=== PATIENT | female | born 2000 | race Caucasian/White ===

== ENCOUNTER 2021-06-20 00:28 | Inpatient (IN) ==
[2021-06-20 00:40] VITALS: BMI 27.6
[2021-06-20 01:03] LABS: AMNISURE ROM TEST THERE IS A RUPTURE (NO RUPTURE)
[2021-06-20] MEDS ORDERED: D5 LR + PITOCIN 10 UNITS/L 10 UNITS/1,000 ML BAG IV PRN (01:23)
[2021-06-20] MEDS ORDERED: PITOCIN IVP ONE (01:23)
[2021-06-20] MEDS ORDERED: PHENERGAN INJ 25 MG IM PRN ×2 (01:23→11:28)
[2021-06-20] MEDS ORDERED: MORPHINE SULFATE INJ 2 MG INJ IVP PRN (01:23)
[2021-06-20] MEDS ORDERED: STADOL INJ IVP PRN (01:25)
[2021-06-20] MEDS ORDERED: D5 1/2 NS 1,000 mL + PITOCIN 20 UNITS/L IV 20 UNITS/1,000 ML BAG IV ONE (01:28)
[2021-06-20] MEDS ORDERED: BETADINE SOLN ONE (01:28)
[2021-06-20] MEDS ORDERED: PITOCIN ONE (01:28)
[2021-06-20] MEDS ORDERED: FENTANYL VIAL INJ 100 mcg ONE (01:30)
[2021-06-20] MEDS ORDERED: NAROPIN EPIDURAL 0.2% 100 ML ONE (01:30)
[2021-06-20] MEDS ORDERED: LR 1,000 ML IV 1,000 ML IV ONE ×2 (01:30→06:20)
[2021-06-20] MEDS ORDERED: D5 1/2 NS 1,000 ML 1,000 ML IV SCH (02:00)
[2021-06-20] MEDS ORDERED: REGLAN INJ 10 MG VIAL ONE (02:31)
[2021-06-20] MEDS: REGLAN INJ 10 MG VIAL IVP PRN ×2 (02:40→21:52)
--- NOTE | 2021-06-20 06:33 | DR.OB ---
OB Quick Note - Assessment/Plan Assessment/Plan: L&D 06/20/21 at 6:30am Pitocin=18mu/min. S-No complaint. s/p epidural. O-Afebrile,VSS UFE=061 with good LTV, +accel, no decel. CTX=q 1 1/2 to 2 min., strong by palpation CVX=5cm/90%/0/VTX IUPC and FSE placed. A-IUP at 39 3/7 weeks in labor P-Cont. pitocin augmentation Anticipate
[2021-06-20] MEDS ORDERED: MILK OF MAGNESIA PO PRN (12:51)
[2021-06-20] MEDS ORDERED: AMBIEN PO PRN (12:51)
[2021-06-20] MEDS ORDERED: DERMOPLAST PAIN RELIEF SPRAY TOP PRN (12:51)
[2021-06-20] MEDS ORDERED: ADACEL or BOOSTRIX TDaP VACCINE IM ONE (12:51)
[2021-06-20] MEDS: D5 1/2 NS 1,000 ML 1,000 ML with PITOCIN 20 UNITS IV SCH ×4 (13:50→22:42)
[2021-06-20] MEDS: MOTRIN TAB 800 MG PO PRN ×2 (14:00→21:42)
--- NOTE | 2021-06-20 14:19 | DR.OB ---
OB Quick Note - Assessment/Plan Assessment/Plan: Delivery Note FLEET COORDINATOR 06/20/21 at 11:07am Patient complete and pushing. Head delivered over intact perineum. Nuchal cord x 1 reduced. Nose and mouth bulb suctioned. Body delivered over intact perineum. Cord clamped x 2 and cut. Infant handed to attendant. Cord sent for gases. Placenta delivered spontaneously / intact / 3 vessel cord. No CVX tear. A second degree midline tear noted and repaired with 0-vicryl in usual fashion. Viable male , VTX/OA, wt=7'5" and 9/9, stable to NBN. Mother stable to RR. [id number].
[2021-06-21 04:46] LABS: HEMATOCRIT 32.3 % (36.0-47.0)
[2021-06-21] MEDS: D5 1/2 NS 1,000 ML 1,000 ML with PITOCIN 20 UNITS IV SCH ×2 (04:47)
[2021-06-21] MEDS: REGLAN INJ 10 MG VIAL IVP PRN (04:59)
[2021-06-21] MEDS: MOTRIN TAB 800 MG PO PRN (05:59)
[2021-06-21 08:28] VITALS: BP 125/77
[2021-06-21] MEDS ORDERED: PRENATAL PLUS PO SCH (09:00)
== END 2021-06-21 14:30 | disposition home or self-care (01) | DRG 807 ==
LOC: ER 00:32 → LD 01:18 → MED/SURG 13:35
PROVIDERS: ADMIT Specialist; ATTEND Specialist
DX: Z3A.39 39 weeks gestation of pregnancy; O99.353 Diseases of the nervous system complicating pregnancy, third trimester; O99.891 Other specified diseases and conditions complicating pregnancy; Z37.0 Single live birth; D50.8 Other iron deficiency anemias; Z23 Encounter for immunization; O70.1 Second degree perineal laceration during delivery; O99.013 Anemia complicating pregnancy, third trimester

== ENCOUNTER 2022-08-11 06:12 | Inpatient (IN) ==
[2022-08-11] MEDS ORDERED: D5 1/2 NS 1,000 ML 1,000 ML IV ONE (06:46)
[2022-08-11] MEDS ORDERED: D5 1/2 NS 1,000 mL + PITOCIN 20 UNITS/L IV 20 UNITS/1,000 ML BAG IV ONE (06:46)
[2022-08-11] MEDS ORDERED: D5 LR + PITOCIN 10 UNITS/L 10 UNITS/1,000 ML BAG IV ONE (06:46)
[2022-08-11] MEDS ORDERED: PITOCIN ONE (06:46)
[2022-08-11] MEDS ORDERED: BETADINE SOLN ONE (06:46)
--- NOTE | 2022-08-11 07:10 | DR.OB ---
OB Quick Note - Assessment/Plan Assessment/Plan: L&D 08/11/22 at 7:05am S-No complaint. O-Afebrile,VSS OQF=700 with good LTV, +accel, no decel. CTX=Mild uterine irritability CVX=3cm/50%/-1/VTX AROM with clear fluid. IUPC and FSE placed. A-IUP at 39 0/7 weeks for induction P-Begin pitocin induction Anticipate
[2022-08-11] MEDS ORDERED: D5 1/2 NS 1,000 ML 1,000 ML IV SCH (07:31)
[2022-08-11] MEDS ORDERED: PITOCIN IVP ONE (07:31)
[2022-08-11] MEDS ORDERED: PHENERGAN INJ 25 MG IM PRN (07:31)
[2022-08-11] MEDS ORDERED: REGLAN INJ 10 MG VIAL IVP PRN (07:31)
[2022-08-11] MEDS ORDERED: D5 LR + PITOCIN 10 UNITS/L 10 UNITS/1,000 ML BAG IV PRN (07:31)
[2022-08-11] MEDS ORDERED: NUBAIN INJ 20 MG AMP IVP PRN (07:31)
[2022-08-11] MEDS ORDERED: MORPHINE SULFATE INJ 2 MG INJ IVP PRN (07:31)
[2022-08-11 08:01] LABS: BILIRUBIN,URINE NEGATIVE (NEGATIVE); BLOOD/HEMOGLOBIN,URINE 1+ (NEGATIVE); GLUCOSE, URINE NEGATIVE (NEGATIVE); KETONES,URINE NEGATIVE (NEGATIVE); LEUKOCYTE ESTERASE ,URINE 3+ (NEGATIVE); NITRITES,URINE NEGATIVE (NEGATIVE); PH,URINE 6.5 (5.0 - 8.0); PROTEIN,URINE 1+ (NEGATIVE); UROBILINOGEN,URINE 1+ (NORMAL)
[2022-08-11 08:01] LABS: BASOPHILS % (AUTO) 0.4 % (0.2-1.0); EOSINOPHILS % (AUTO) 0.5 % (0.9-2.9); HEMATOCRIT 25.3 % (36.0-47.0); HEMOGLOBIN 8.3 g/dL (12.0-16.0); LYMPHOCYTES % (AUTO) 20.5 % (21.0-51.0); MEAN CORPUSCULAR HEMOGLOBIN 22.3 pg (27.0-34.0); MEAN CORPUSCULAR HGB CONC 32.7 g/dL (33.0-35.0); MEAN CORPUSCULAR VOLUME 68.2 fL (80.0-100.0); MEAN PLATELET VOLUME 8.4 fL (7.4-11.0); MONOCYTES # (AUTO) 0.4 x10^3/uL (0.3-0.8); MONOCYTES % (AUTO) 4.3 % (0.0-13.0); NEUTROPHILS # (AUTO) 7.1 x10^3/uL (2.2-4.8); NEUTROPHILS % (AUTO) 74.3 % (42.0-75.0); RED CELL DISTRIBUTION WIDTH 16.7 % (11.6-16.5); WHITE BLOOD COUNT 9.6 X10^3/uL (3.6-10.0)
[2022-08-11 08:02] LABS: APPEARANCE,URINE CLEAR (CLEAR); COLOR,URINE YELLOW (YELLOW)
[2022-08-11 08:09] LABS: PLATELET MORPHOLOGY COMMENT NORMAL (NORMAL)
[2022-08-11 08:10] LABS: BACTERIA,URINE TRACE /HPF (NEGATIVE); SQUAMOUS EPITHELIAL CELL,UR MANY /HPF (NEGATIVE)
[2022-08-11 08:10] LABS: HYPOCHROMASIA 1+; MICROCYTOSIS 1+; STOMATOCYTES SLIGHT
[2022-08-11 08:15] LABS: ALANINE AMINOTRANSFERASE 13 Units/L (12-78); ALBUMIN 2.3 g/dL (3.4-5.0); ALKALINE PHOSPHATASE 178 Units/L (46-116); ASPARTATE AMINO TRANSFERASE 15 Units/L (15-37); BLOOD UREA NITROGEN 3 mg/dL (7-18); CALCIUM 7.9 mg/dL (8.5-10.1); CARBON DIOXIDE 24.1 mmol/L (21-32); CHLORIDE 103 mmol/L (98-107); COR CA(FOR HYPOALB) 9.3 mg/dL (8.5-10.1); SODIUM 135 mmol/L (136-145); TOTAL PROTEIN 5.8 g/dL (6.4-8.2); eGFR NON BLACK RACES > 60 (>60)
[2022-08-11] MEDS ORDERED: ZOFRAN INJ 4 MG VIAL ONE (09:20)
[2022-08-11] MEDS: STADOL INJ IVP PRN ×2 (09:24→12:41)
[2022-08-11] MEDS: STADOL INJ ONE ×2 (09:24→10:17)
[2022-08-11] MEDS ORDERED: LR 1,000 ML IV 1,000 ML IV ONE (09:26)
[2022-08-11] MEDS ORDERED: FENTANYL VIAL INJ 100 mcg ONE (09:26)
[2022-08-11] MEDS ORDERED: NAROPIN EPIDURAL 0.2% 100 ML ONE (09:26)
--- NOTE | 2022-08-11 11:46 | DR.OB ---
OB Quick Note - Assessment/Plan Assessment/Plan: Delivery Note ADMINISTRATIVE CLERK 08/11/22 at 11:27am Patient complete and pushing. Head delivered over intact perineum. Nuchal cord x 1 reduced. Nose and mouth bulb suctioned. Body delivered over intact perineum. Cord clamped x 2 and cut. Infant handed to attendant. Cord sent for gases. Placenta delivered spontaneously / intact / 3 vessel cord. No CVX / vaginal / perineal tears. Viable female infant, VTX/OA, wt=6'14" and 7/9, stable to NBN. Mother stable to RR. [id number]=[id number].
[2022-08-11] MEDS ORDERED: MOTRIN TAB 800 MG PO PRN (11:47)
[2022-08-11] MEDS: D5 1/2 NS 1,000 ML 1,000 ML with PITOCIN 20 UNITS IV SCH ×4 (12:14→20:00)
[2022-08-11] MEDS ORDERED: STADOL INJ ONE (12:38)
[2022-08-11] MEDS ORDERED: AMBIEN PO PRN (12:41)
[2022-08-11] MEDS ORDERED: MILK OF MAGNESIA PO PRN (12:41)
[2022-08-11] MEDS ORDERED: ADACEL or BOOSTRIX TDaP VACCINE IM ONE (12:41)
[2022-08-11] MEDS ORDERED: DERMOPLAST PAIN RELIEF SPRAY TOP PRN (12:41)
[2022-08-12 05:04] LABS: HEMATOCRIT 26.3 % (36.0-47.0); HEMOGLOBIN 8.3 g/dL (12.0-16.0)
[2022-08-12] MEDS: D5 1/2 NS 1,000 ML 1,000 ML with PITOCIN 20 UNITS IV SCH ×4 (05:23→12:48)
[2022-08-12] MEDS ORDERED: ADACEL or BOOSTRIX TDaP VACCINE IM ONE (08:11)
[2022-08-12] MEDS ORDERED: PRENATAL PLUS PO SCH (09:00)
[2022-08-12] MEDS ORDERED: CELEXA PO SCH (09:00)
[2022-08-12 12:01] VITALS: BP 150/74
== END 2022-08-12 14:29 | disposition home or self-care (01) | DRG 833 ==
LOC: LD 06:12 → MED/SURG 13:26
PROVIDERS: ADMIT Specialist; ATTEND Specialist